=== PATIENT | female | born 1980 ===

== ENCOUNTER 2022-12-18 10:54 | Outpatient (CLI) | payer OTHER | END 2022-12-18 12:15 | disposition home or self-care (01) | LOC: PRENATAL 10:54 | PROVIDERS: ATTEND Obstetrics & Gynecology Maternal & Fetal Medicine | DX: O26.849 Uterine size-date discrepancy, unspecified trimester (principal); O36.8199 Decreased fetal movements, unspecified trimester, other fetus; Z3A.34 34 weeks gestation of pregnancy ==